=== PATIENT | female | born 1950 | race Two or more races ===

== ENCOUNTER 2017-12-16 11:17 | Inpatient (IN) | payer MEDICAID, OTHER ==
[~2017-12-16] VITALS: Ht 152.4 cm; Wt 79.3 kg
[~2017-12-16 11:17] MED LIST: ASPI-515 PO; ATOR10TA9 PO; GLIM4TAB2 PO; LEVO750T26 PO; LISI40TA PO; METF10002 PO; METO-99 PO
[2017-12-16] MEDS ORDERED: ASPIRIN 81 MG TABLET CHEW PO ONE (12:00)
[2017-12-16] MEDS ORDERED: SODIUM CHLORIDE FLUSH 10ML SYR IVF ONE (12:00)
[2017-12-16] MEDS ORDERED: NITROGLYCERIN SINGLE TAB 0.4 MG SL PRN (12:00)
[2017-12-16] MEDS ORDERED: HYDR25TA6 PO (12:38)
[2017-12-16 12:40] LABS: BASOPHILS # (AUTO) 0.05 x10^3/uL (0-0.1); BASOPHILS % (AUTO) 1 % (0-1); EOSINOPHILS # (AUTO) 0.08 x10^3/uL (0-0.4); EOSINOPHILS % (AUTO) 1 % (1-7); LYMPHOCYTES # (AUTO) 3.48 x10^3/uL (1-3.4); LYMPHOCYTES % (AUTO) 35 % (22-44); MD NO; MEAN CORPUSCULAR HEMOGLOBIN 31.4 pg (27.0-34.8); MEAN CORPUSCULAR HGB CONC 34.5 g/dL (32.4-35.8); MEAN CORPUSCULAR VOLUME 91.1 fL (80-100); MEAN PLATELET VOLUME 8.9 fL (7.4-10.4); MONOCYTES # (AUTO) 0.62 x10^3/uL (0.2-0.8); MONOCYTES % (AUTO) 6 % (2-9); NEUTROPHILS # (AUTO) 5.76 x10^3/uL (1.8-6.8); NEUTROPHILS % (AUTO) 58 % (42-75); PLATELET COUNT 306 x10^3/uL (130-400); RED BLOOD COUNT 4.41 x10^6/uL (3.82-5.3); RED CELL DISTRIBUTION WIDTH 12.9 % (9.6-15.2)
[2017-12-16] MEDS ORDERED: NITROGLYCERIN SINGLE TAB 0.4 MG SL ONE (12:40)
[2017-12-16] MEDS ORDERED: ASPIRIN 81 MG TABLET CHEW ONE (12:40)
[2017-12-16 12:48] LABS: INTERNATIONAL NORMALIZED RATIO 0.99 (0.93-1.1); PROTHROMBIN TIME 10.3 Seconds (9.6-11.5)
[2017-12-16 12:51] LABS: ALANINE AMINOTRANSFERASE 46 U/L (12-78); ALBUMIN 3.5 g/dL (3.4-5.0); ANION GAP 10 mmol/L (5-15); CALCIUM 8.4 mg/dL (8.5-10.1); CHLORIDE 103 mmol/L (98-107); CREATININE 0.83 mg/dL (0.55-1.02)
[2017-12-16 12:56] LABS: ALKALINE PHOSPHATASE 136 U/L (45-117); BILIRUBIN,TOTAL 0.6 mg/dL (0.2-1.0); TOTAL PROTEIN 7.4 g/dL (6.4-8.2); TROPONIN I < 0.015 ng/mL (0.000-0.045)
[2017-12-16] MEDS ORDERED: SODIUM CHLORIDE FLUSH 10ML SYR IVF PRN (14:30)
[2017-12-16] MEDS ORDERED: NITROGLYCERIN 0.4 MG BOTTLE (25 TABS) SL PRN (15:00)
[2017-12-16] MEDS ORDERED: ONDANSETRON 2MG/ML, 2ML IVPush PRN (15:00)
[2017-12-16] MEDS ORDERED: BISACODYL 10 MG SUPP PR PRN (15:00)
[2017-12-16] MEDS ORDERED: LABETALOL 5MG/ML, 20ML IVPush PRN (15:00)
[2017-12-16 15:29] LABS: HEMOGLOBIN A1C 11.5 % (4.2-6.3)
[2017-12-16] MEDS ORDERED: ENOXAPARIN 40 MG/0.4 ML ONE (15:51)
[2017-12-16] MEDS ORDERED: INSULIN REGULAR 100 UNITS/ML, 3ML VIAL ONE (16:02)
[2017-12-16] MEDS: ENOXAPARIN 40 MG/0.4 ML SQ SCH (16:06)
[2017-12-16] MEDS: INSULIN LISPRO 100 UNITS/ML, PEN SQ-INSULIN SCH ×2 (17:04→20:49)
[2017-12-16] MEDS ORDERED: LABETALOL 5MG/ML, 20ML ONE (18:27)
[2017-12-16 18:52] LABS: TROPONIN I < 0.015 ng/mL (0.000-0.045)
[2017-12-16] MEDS: ATORVASTATIN 10 MG TABLET PO SCH (20:42)
[2017-12-16 21:31] VITALS: BP 153/73
[2017-12-17 00:38] VITALS: BP 136/72
[2017-12-17 00:55] LABS: TROPONIN I < 0.015 ng/mL (0.000-0.045)
[2017-12-17 06:12] LABS: CHOL/HDL RATIO 2.7; LDL/HDL RATIO 0.4 (0.5-3.0)
[2017-12-17] MEDS: ASPIRIN 81 MG TABLET EC PO SCH (06:22)
[2017-12-17 07:30] VITALS: BP 166/81
[2017-12-17 08:00] VITALS: BP 166/79
[2017-12-17] MEDS: LISINOPRIL 20 MG TABLET PO SCH (08:00)
[2017-12-17] MEDS: HYDROCHLOROTHIAZIDE 25 MG TABLET PO SCH (08:00)
[2017-12-17] MEDS: INSULIN LISPRO 100 UNITS/ML, PEN SQ-INSULIN SCH ×4 (08:01→20:09)
[2017-12-17] MEDS: INSULIN GLARGINE 100 UNITS/ML, PEN SQ-INSULIN SCH (11:46)
[2017-12-17 15:00] VITALS: BP 123/81
[2017-12-17] MEDS: ENOXAPARIN 40 MG/0.4 ML SQ SCH (16:09)
[2017-12-17 18:39] VITALS: BP 156/80
[2017-12-17] MEDS: ATORVASTATIN 10 MG TABLET PO SCH (20:07)
[2017-12-17] MEDS: ACETAMINOPHEN 325 MG TABLET PO PRN (20:07)
[2017-12-18 01:08] VITALS: BP 119/78
[2017-12-18] MEDS: ASPIRIN 81 MG TABLET EC PO SCH (06:33)
[2017-12-18] MEDS ORDERED: REGADENOSON 0.4 MG/5 ML SYRINGE ONE (07:59)
[2017-12-18 09:22] VITALS: BP_SYST 163; BP_SYST 170; BP_DIAS 100; BP_DIAS 93
[2017-12-18] MEDS: LISINOPRIL 20 MG TABLET PO SCH (10:43)
[2017-12-18] MEDS: HYDROCHLOROTHIAZIDE 25 MG TABLET PO SCH (10:43)
[2017-12-18] MEDS: INSULIN GLARGINE 100 UNITS/ML, PEN SQ-INSULIN SCH (10:44)
[2017-12-18] MEDS: INSULIN LISPRO 100 UNITS/ML, PEN SQ-INSULIN SCH ×2 (10:44→12:49)
[2017-12-18] MEDS ORDERED: INSU100I13 SQ-INSULIN (11:25)
[2017-12-18] MEDS: ACETAMINOPHEN 325 MG TABLET PO PRN (13:35)
== END 2017-12-18 14:54 | disposition home or self-care (01) | DRG 313 ==
LOC: ED 13:39 → EDIP 14:14 → SUATTDRO 14:21 → 5SO 18:46
PROVIDERS: ADMIT Internal Medicine; ATTEND Internal Medicine
DX: R07.89 Other chest pain (principal); E11.65 Type 2 diabetes mellitus with hyperglycemia; I69.30 Unspecified sequelae of cerebral infarction; E66.9 Obesity, unspecified; Z68.34 Body mass index [BMI] 34.0-34.9, adult; E78.5 Hyperlipidemia, unspecified; I10 Essential (primary) hypertension; Z79.82 Long term (current) use of aspirin; Z85.42 Personal history of malignant neoplasm of other parts of uterus; Z90.710 Acquired absence of both cervix and uterus
CPT/HCPCS: 36415; 71045; 78452; 80053; 80061; 82962; 83036; 83880; 84443; 84484; 85025; 85610; 85730; 93005; 96372; J1650; J2785; A9502; C9898; J1815

== ENCOUNTER 2021-03-25 22:41 | Emergency (ER) | payer MEDICAID, OTHER ==
[~2021-03-25] VITALS: Ht 162.6 cm; Wt 80.0 kg
[~2021-03-25 22:41] MED LIST changes: -ASPI-515 PO; +ASPI-963 PO; -GLIM4TAB2 PO; +GLIM4TAB8 PO; +HYDR25TA6 PO; +INSU100I13 SQ-INSULIN; -LISI40TA PO; +LISI40TA9 PO
[2021-03-25 22:48] VITALS: BP 154/83
[2021-03-25 23:23] LABS: BASOPHILS % (AUTO) 1 % (0-1); EOSINOPHILS % (AUTO) 1 % (1-7); LYMPHOCYTES % (AUTO) 39 % (22-44); MEAN CORPUSCULAR HEMOGLOBIN 29.4 pg (27.0-34.8); MEAN CORPUSCULAR HGB CONC 33.2 g/dL (32.4-35.8); MEAN PLATELET VOLUME 8.7 fL (7.4-10.4); MONOCYTES % (AUTO) 7 % (2-9); NEUTROPHILS % (AUTO) 52 % (42-75); PLATELET COUNT 381 x10^3/uL (130-400); RED BLOOD COUNT 4.87 x10^6/uL (3.82-5.3); RED CELL DISTRIBUTION WIDTH 13.4 % (9.6-15.2)
[2021-03-25 23:26] LABS: ALBUMIN 3.3 g/dL (3.4-5.0); ANION GAP 9 mmol/L (5-15); CALCIUM 9.2 mg/dL (8.5-10.1); CHLORIDE 98 mmol/L (98-107); CREATININE 0.96 mg/dL (0.55-1.02)
[2021-03-26] MEDS ORDERED: KETOROLAC 30 MG/1 ML IVPush ONE (01:30)
[2021-03-26] MEDS ORDERED: SODIUM CHLORIDE 0.9% 1,000ML IVBOLUS ONE (01:30)
[2021-03-26] MEDS ORDERED: DEXAMETHASONE 4 MG/ML, 1ML IVPush ONE (01:30)
[2021-03-26] MEDS ORDERED: DIPHENHYDRAMINE 50 MG/ML, 1ML IVPush ONE (01:30)
[2021-03-26] MEDS ORDERED: SODIUM CHLORIDE FLUSH 10ML SYR IVF ONE (01:30)
[2021-03-26] MEDS ORDERED: PROCHLORPERAZINE 5 MG/ML, 2ML IVPush ONE (01:30)
[2021-03-26] MEDS ORDERED: DEXAMETHASONE 4 MG/ML, 5ML ONE (01:53)
[2021-03-26] MEDS ORDERED: PROCHLORPERAZINE 5 MG/ML, 2ML ONE (01:53)
[2021-03-26] MEDS ORDERED: KETOROLAC 30 MG/1 ML ONE (01:53)
[2021-03-26] MEDS ORDERED: DIPHENHYDRAMINE 50 MG/ML, 1ML ONE (01:53)
--- NOTE | 2021-03-26 03:19 | NUR ---
Patient and family given discharge instructions and they have confirmed that they understand the instructions. Patient ambulatory with steady gait.
== END 2021-03-26 03:21 | disposition home or self-care (01) ==
LOC: ED 22:48
DX: J06.9 Acute upper respiratory infection, unspecified (principal); Z20.822 Contact with and (suspected) exposure to COVID-19; G44.219 Episodic tension-type headache, not intractable; R68.84 Jaw pain; B34.9 Viral infection, unspecified; I10 Essential (primary) hypertension; E78.5 Hyperlipidemia, unspecified; M19.90 Unspecified osteoarthritis, unspecified site
CPT/HCPCS: 36415; 70450; 71045; 80048; 82040; 85025; 93005; 96361; 96374; 96375; 99285; J0780; J1100; J1200; J1885; J7030; U0003; U0005